=== PATIENT | female | born 1990 | race Caucasian/White ===

== ENCOUNTER 2016-10-28 14:49 | Emergency (ER) | payer OTHER ==
--- NOTE | ~2016-10-28 | CT2 ---
[facility] A Service [facility] RADIOLOGY TEXT RESULTS PATIENT: EDGAR WRIGHT LOCATION: [facility] : [birth year] UNIT #: [id number] AGE: [address]: Vanessa Valera MD SEX: F ORDER DR: [id number] [facility] [address] [place], [place] [address] [id number] MR#: [id number] Acc #: [id number] NAME: EDGAR WRIGHT : 1990 SEX: F STUDY DATE/TIME: 10/28/2016 15:47 UNIT: [facility] ROOM: STUDY DESCRIPTION: CT Abd and Pelv W Cont Attending Physician: Vanessa Valera M.D. Ordering Physician: Vanessa Valera M.D. Primary Care Physician: No Primary Care Physician MEDICAL IMAGING REPORT This report is preliminary unless electronic signature is present EXAM Abdomen and pelvis CT with contrast 10/28/2016 HISTORY Bloody stools and rectal pain beginning this morning. TECHNIQUE Axial images were obtained with oral and intravenous contrast. 100 mL of Isovue was used. This CT exam was performed with one or more of the following radiation dose reduction techniques: automatic exposure control, adjustment of mA and/or kV according to patient size, and iterative reconstruction. COMPARISON STUDIES 05/25/2016 FINDINGS No upper abdominal solid organ abnormalities are seen. There is no evidence of retroperitoneal adenopathy or ascites. There are no distended bowel loops. Scans into the pelvis show a small amount of free fluid in the pelvic cul-de-sac. There is a hyper enhancing focus in the left ovary, which appears mildly enlarged. This could reflect a recently ruptured ovarian cyst. No perirectal inflammatory changes are seen. There is no evidence of adenopathy or mass. The appendix is normal. IMPRESSION Probable recent rupture of a left ovarian cyst. There is a hyper enhancing focus in the left ovary accompanied by a small amount of fluid in the pelvic cul-de-sac. Otherwise negative examination. No evidence of inflammatory bowel disease and no suspicious masses are seen. [facility] A Service [facility] RADIOLOGY TEXT RESULTS PATIENT: EDGAR WRIGHT [id number] [birth year] UNIT #: [id number] AGE: [address]: Vanessa Valera MD SEX: F ORDER DR: Dictated by... [employer] M.D. THIS IS AN ELECTRONICALLY VERIFIED REPORT [employer] M.D. at 10/29/2016 1:29 PM LITA/jacqueline TD: 10/28/2016 17:03 JOB #: [id number] MEDICAL IMAGING REPORT Page 1 of 1 COPY
[2016-10-28 14:42] LABS: BASOPHIL# 0.1 X10e3 (0-0.3); BASOPHIL% 0.4 % (0-2.5); EOSINOPHIL% 0.3 % (0.0-7.0); HEMATOCRIT 42.8 % (35.0-45.0); HEMOGLOBIN 14.4 gm/dL (12.0-16.0); LYMPHOCYTE# 0.9 X10e3 (1.0-3.5); LYMPHOCYTE% 6.8 % (17.0-45.0); MEAN CORPUSCULAR HEMOGLOBIN 29.4 PG (28-34); MEAN CORPUSCULAR HGB CONC 33.7 g/dL (30-36); MONOCYTE# 0.5 X10e3 (0-1.0); MONOCYTE% 4.2 % (3.0-12.0); NEUTROPHIL% 88.3 % (40-75); PLATELET COUNT 248 X10e3 (140-420); RED BLOOD COUNT 4.91 X10e (3.90-5.30); RED CELL DISTRIBUTION WIDTH 12.4 % (11.0-15.5); WHITE BLOOD COUNT 12.4 X10e3 (4.0-10.5)
[2016-10-28 14:43] LABS: DIFF IND NO
[~2016-10-28 14:49] MED LIST: FLEXERIL10 MG PO; NO MEDICATIONS; VIMPAT100 MG PO; VOLTAREN75 MG PO
[2016-10-28 14:56] LABS: PROTHROMBIN TIME (PATIENT) 10.1 SECONDS (9.6-11.5)
[2016-10-28 15:11] LABS: ALBUMIN SERUM 4.6 g/dL (3.5-5.0); BILIRUBIN, DIRECT 0.1 mg/dL (0.0-0.2); BILIRUBIN,INDIRECT 0.5 mg/dL (0.0-0.9); BILIRUBIN,TOTAL 0.6 mg/dL (0.2-2.0); BUN/CREATININE RATIO 14.28; CALCIUM SERUM 9.4 mg/dL (8.4-10.2); CREATININE SERUM 0.7 mg/dL (0.6-1.4); GLOM FILT RATE Estimated 120.4 mL/min (>60); POTASSIUM 3.8 mmol/L (3.5-5.1); PROTEIN TOTAL SERUM 7.9 g/dL (6.0-8.3)
[2016-10-28 15:14] LABS: URINE SOURCE CLEAN CATCH
[2016-10-28 15:31] LABS: URINE APPEARANCE CLEAR; URINE BILIRUBIN NEG (NEG); URINE BLOOD TRACE (NEG); URINE COLOR YELLOW; URINE GLUCOSE NEG (NEG); URINE KETONE NEG (NEG); URINE LEUKOCYTE ESTERASE 1+ (NEG); URINE NITRATE NEG (NEG); URINE PROTEIN NEG (NEG); URINE UROBILINOGEN 0.2 MG/DL (NEG)
[2016-10-28 15:34] LABS: CULTURE INDICATED? YES; URINE BACTERIA AUWI 2+ (NEGATIVE); URINE SQUAMOUS EPITHELIAL CELL FEW /[HPF]
== END 2016-10-28 17:50 | disposition home or self-care (01) ==
LOC: CED 14:49
PROVIDERS: Emergency Medicine
DX: K62.5 Hemorrhage of anus and rectum (principal); N39.0 Urinary tract infection, site not specified; G40.909 Epilepsy, unspecified, not intractable, without status epilepticus; Z88.2 Allergy status to sulfonamides; Z79.899 Other long term (current) drug therapy
CPT/HCPCS: 36415; 74177; 80048; 80076; 81003; 84703; 85025; 85610; 87086; 96372; 96374; 99284; J0500; J2405; Q9967

== ENCOUNTER 2016-11-11 11:48 | Emergency (ER) | payer OTHER | END 2016-11-11 12:06 | disposition home or self-care (01) | LOC: CED 11:48 | DX: G40.909 Epilepsy, unspecified, not intractable, without status epilepticus (principal); Z88.2 Allergy status to sulfonamides | CPT/HCPCS: 82947; 99284 ==